=== PATIENT | male | born 1980 | race Caucasian/White ===

== ENCOUNTER → 2020-06-07 | Outpatient (CLI) | payer OTHER ==
[2020-06-07 13:16] LABS: HEMOGLOBIN 16.6 gm/dl (14.0-17.5); RED BLOOD COUNT 5.35 M/UL (4.20-5.50); WHITE BLOOD COUNT 8.9 K/UL (4.5-11.0)
[2020-06-07 13:36] LABS: BUN/CREATININE RATIO 13 (0-10)
[2020-06-08 07:10] LABS: THYROXINE (T4) 8.5 ug/dL (4.5-12.0); VITAMIN D, 25-HYDROXY 20.4 ng/mL (30.0-100.0)
== END ==
LOC: LAB 11:44
PROVIDERS: Nurse Practitioner Family
DX: R53.83 Other fatigue (principal); I10 Essential (primary) hypertension
CPT/HCPCS: 36415; 80053; 80061; 81001; 84436; 84443; 84480; 85025

== ENCOUNTER → 2020-07-11 | Outpatient (CLI) | payer OTHER | LOC: LAB 13:48 | DX: E55.9 Vitamin D deficiency, unspecified (principal) ==